=== PATIENT | female | born 1940 ===

== ENCOUNTER 2019-07-29 05:57 | Day surgery (SDC) | payer OTHER ==
[~2019-07-29 05:57] MED LIST: AVALIDE 300-121 EACH PO; BREO ELLIPTA I1 EACH IH; GLUCOTROL10 MG PO; LIPITOR20 MG PO; PROTONIX40 MG PO; SINGULAIR10 MG PO; SYNTHROID112 MCG PO
== END 2019-07-30 14:15 | disposition home or self-care (01) ==
LOC: CIR.AMB 05:57
DX: D05.11 Intraductal carcinoma in situ of right breast (principal)

== ENCOUNTER 2019-12-09 06:00 | Day surgery (SDC) | payer OTHER | END 2019-12-09 16:10 | disposition home or self-care (01) | LOC: CIR.AMB 06:00 | DX: C50.111 Malignant neoplasm of central portion of right female breast (principal) ==